=== PATIENT | male | born 2000 | race Caucasian/White ===

== ENCOUNTER 2021-11-06 09:55 | Emergency (ER) | payer SELFPAY ==
[~2021-11-06] VITALS: Ht 188 cm; Wt 200.0 kg
[2021-11-06 10:21] VITALS: BP 150/92
[2021-11-06] MEDS ORDERED: TOPUD MT (11:55)
== END 2021-11-06 11:56 | disposition home or self-care (01) ==
LOC: ER 09:55
DX: S39.012A Strain of muscle, fascia and tendon of lower back, initial encounter (principal); X58.XXXA Exposure to other specified factors, initial encounter; Y93.72 Activity, wrestling; Y92.018 Other place in single-family (private) house as the place of occurrence of the external cause
CPT/HCPCS: 99281